=== PATIENT | female | born 1985 | race African-American/Black ===

== ENCOUNTER 2024-02-08 07:19 | Emergency (ER) | payer MEDICAID ==
[~2024-02-08] VITALS: Ht 165.1 cm; Wt 72.0 kg
[2024-02-08 07:37] VITALS: O2SAT 96
[2024-02-08 07:45] VITALS: BP 112/68; PULSE 110; RESP 20; TEMP 98.9
[2024-02-08 08:44] LABS: HEMATOCRIT. 39.7 % (36.0-48.0); HEMOGLOBIN. 13.4 g/dL (12.0-16.0); MEAN CORPUSCULAR HEMOGLOBIN 28.7 pg (28.0-32.0); MEAN CORPUSCULAR HGB CONC 33.6 g/dL (31.0-37.0); MEAN CORPUSCULAR VOLUME 85.3 fL (81.0-99.0); MEAN PLATELET VOLUME 9.4 fl (7.4-10.4); PLATELET 192 x1000/uL (130-400); RED BLOOD CELL COUNT 4.66 mill/uL (4.2-5.4); WHITE BLOOD COUNT 15.6 x1000/uL (4.5-11.0)
[2024-02-08 08:47] LABS: DIFFERENTIAL COMMENT 1
[2024-02-08 08:49] LABS: CHLORIDE 104 mEq/L (98-107); SODIUM 135 mEq/L (136-145)
[2024-02-08 08:50] LABS: CARBON DIOXIDE 26 mEq/L (21-32)
[2024-02-08 08:51] LABS: CALCIUM 9.1 mg/dL (8.7-10.4)
[2024-02-08 08:55] LABS: CREATININE 0.7 mg/dL (0.6-1.0); GLUCOSE 135 mg/dL (70-105); UREA NITROGEN BLOOD 10 mg/dL (9-23)
[2024-02-08 09:32] LABS: CLARITY URINE CLEAR (CLEAR); COLOR URINE DARK YELLOW (YELLOW); GLUCOSE URINE NEGATIVE (NEGATIVE); KETONES URINE TRACE (NEGATIVE); LEUKOCYTE ESTERASE URINE NEGATIVE (NEGATIVE); NITRITE URINE NEGATIVE (NEGATIVE); OCCULT BLOOD URINE NEGATIVE (NEGATIVE); PH URINE 7.5 (4.5-8.0); PROTEIN URINE NEGATIVE (NEGATIVE); SPECIFIC GRAVITY URINE 1.018 (1.005-1.030)
[2024-02-08] MEDS ORDERED: TOPUD PO (09:45)
[2024-02-08 11:09] LABS: PLATELET ESTIMATE NORMAL
[2024-02-08] MEDS ORDERED: ACETAMINOPHEN 325MG TABLET PO SCH (12:00)
== END 2024-02-08 10:38 | disposition home or self-care (01) ==
LOC: ER 07:19
DX: R50.9 Fever, unspecified (principal); R51.9 Headache, unspecified; R19.7 Diarrhea, unspecified; Z20.822 Contact with and (suspected) exposure to COVID-19
CPT/HCPCS: 80048; 81003; 81025; 85025; 36415; 71045; 99284; 87426; Z7610

== ENCOUNTER 2025-07-02 07:58 | Emergency (ER) | payer MEDICAID ==
[~2025-07-02] VITALS: Ht 157.5 cm; Wt 76.0 kg
[~2025-07-02 07:58] MED LIST: TOPUD PO
[2025-07-02 08:17] VITALS: O2SAT 99
[2025-07-02 08:59] LABS: BASOPHILS % 1.0 % (0.0-2.0); EOSINOPHILS % 2.4 % (0.0-5.0); HEMATOCRIT. 39.2 % (36.0-48.0); HEMOGLOBIN. 13.2 g/dL (12.0-16.0); LYMPHOCYTES % 35.2 % (20.0-50.0); MEAN PLATELET VOLUME 9.1 fl (7.4-10.4); MONOCYTES % 6.8 % (2.0-8.0); NEUTROPHILS % 54.6 % (40.0-76.0); PLATELET 213 x1000/uL (130-400); RED BLOOD CELL COUNT 4.69 mill/uL (4.2-5.4); RED CELL DISTRIBUTION WIDTH 12.9 % (11.6-14.6)
[2025-07-02 09:14] LABS: CREATININE 0.9 mg/dL (0.6-1.0); UREA NITROGEN BLOOD 14 mg/dL (9-23)
[2025-07-02 09:15] LABS: PROTEIN TOTAL 7.3 g/dL (6.0-8.3)
[2025-07-02 09:16] LABS: ASPARTATE AMINOTRANSFERASE 19 IU/L (<34); BILIRUBIN DIRECT < 0.1 mg/dL (<=3.0); BILIRUBIN TOTAL 0.4 mg/dL (0.1-1.0)
[2025-07-02 09:26] LABS: HCG SCREEN NEGATIVE
[2025-07-02] MEDS: MAGNESIUM/ALUMINUM HYDROXIDE/SIMETHICONE 30ML UDC PO ONE (10:52)
[2025-07-02] MEDS: FAMOTIDINE 20MG TABLET PO ONE (10:52)
[2025-07-02 10:53] LABS: CLARITY URINE CLEAR (CLEAR); COLOR URINE YELLOW (YELLOW); GLUCOSE URINE NEGATIVE (NEGATIVE); KETONES URINE NEGATIVE (NEGATIVE); LEUKOCYTE ESTERASE URINE 2+ (NEGATIVE); NITRITE URINE NEGATIVE (NEGATIVE); OCCULT BLOOD URINE NEGATIVE (NEGATIVE); PH URINE 5.0 (4.5-8.0); PROTEIN URINE NEGATIVE (NEGATIVE); SPECIFIC GRAVITY URINE 1.021 (1.005-1.030); UROBILINOGEN URINE 0.2 E.U./dL (0.2-1.0)
[2025-07-02] MEDS: ONDANSETRON 4MG ODT PO ONE (10:53)
[2025-07-02 10:56] VITALS: BP 120/77; PULSE 74; RESP 15; TEMP 36.7; O2SAT 99
[2025-07-02 11:23] LABS: BACTERIA URINE TRACE; SQUAMOUS EPITHELIAL CELL URINE 3+ /lpf (RARE/1+)
[2025-07-02 11:24] LABS: MUCUS URINE TRACE /lpf (< = 2+); WBC URINE 0-2 /hpf (0-2)
[2025-07-02 11:25] LABS: RBC URINE NONE SEEN /hpf (0-2)
== END 2025-07-02 10:57 | disposition home or self-care (01) ==
LOC: ER 07:58
DX: R10.9 Unspecified abdominal pain (principal); R11.0 Nausea
CPT/HCPCS: 99284; 80076; 80048; 81003; 81025; 84703; 83690; 85025; 36415; Q0162